=== PATIENT | female | born 1980 | race Caucasian/White ===

== ENCOUNTER 2024-06-25 09:55 | Outpatient (OUT) | payer OTHER, SELFPAY ==
--- NOTE | 2024-06-25 10:05 | MM_ITS ---
Patient Name: LARON ALMAGUER MR#: [id number] : 1980 Exam Date: 06/25/2024 Ordering Doctor: VERNA Alonzo CNP RADIOLOGY REPORT PROCEDURE: MM TOMOSYNTHESIS SCREENING BI COMPARISON: None. INDICATIONS: Screening Calculator Name NCI Breast Cancer Risk Assessment Tool 5 Year Breast Cancer Risk 0.50% Lifetime Breast Cancer Risk 8.20% Personal Breast Cancer No Personal Ovarian Cancer No Treatments None Family Cancers Grandmother-maternal with breast cancer at age 40. LOCATION: [facility] BREAST COMPOSITION: There are scattered areas of fibroglandular density. FINDINGS: DIAGNOSTIC CATEGORY 1--NEGATIVE. LEFT BREAST: No significant suspicious finding. RIGHT BREAST: No significant suspicious finding. RECOMMENDATIONS: ROUTINE MAMMOGRAM AND CLINICAL EVALUATION IN 12 MONTHS. PLEASE NOTE: A NORMAL MAMMOGRAM DOES NOT EXCLUDE THE POSSIBILITY OF BREAST CANCER. A CLINICALLY SUSPICIOUS PALPABLE LUMP SHOULD BE BIOPSIED. Dictated by: Theodore Mcgraw DO on 06/28/2024 at 15:39 Approved by: Theodore Mcgraw DO on 06/28/2024 at 15:43
--- NOTE | 2024-06-25 10:06 | US_ITS ---
The [address] [address] Patient Name: LARON ALMAGUER MRN: [id number] date: 1980 Sex: F Assigned Patient Location: [place] Current Patient Location: [place] Accession/Order Number: [id number] Exam Date: 06/25/2024 11:45 Report Date: 06/25/2024 11:49 At the request of: MARIUM SMITH NP Procedure: US thyroid Thyroid Ultrasound HISTORY: Thyroid nodule follow-up assessment COMPARISON: 06/20/2021 The RIGHT lobe measures 4.1 x 1.6 x 1.0cm. LEFT lobe measures 4.6 x 1.4 x 1.3 cm. Isthmus has an AP dimension of 1.1cm. Left mid thyroid nodule is composition 2 echogenicity 1. Total score of 3. Nodule measures 6 x 4 x 5 mm. Nodule is solid and isoechoic. Wider than tall. Well-circumscribed margin. No microcalcifications identified. Symmetric blood flow of the thyroid gland identified. US/US thyroid IMPRESSION: Stable 6 mm left thyroid nodule. Impression dictated by: Saul Obando M.D.06/25/2024 11:49 AM Dictation Location: [place] [address] Electronically authenticated by: [id number] Y Date: 06/25/2024 11:49
[2024-06-25 10:59] LABS: Basophils Absolute Auto 0.1 10^3/uL (0.0-0.1); Basophils Percent Auto 0.6 % (0.2-2.0); Eosinophils Absolute Auto 0.2 10^3/uL (0.0-0.7); Eosinophils Percent Auto 1.9 % (0.9-7.0); Hematocrit 39.8 % (36.0-48.0); Hemoglobin 13.7 g/dL (12.0-16.0); Immature Granulocytes Abs Auto 0.02 10^3/uL (0.00-0.03); Immature Granulocytes Pct Auto 0.2 % (0.0-0.5); Lymphocytes Percent Auto 24.7 % (20.5-60.0); Mean Corpuscular HGB Conc 34.4 g/dL (29.9-35.2); Mean Corpuscular Hemoglobin 31.4 pg (26.7-34.0); Mean Corpuscular Volume 91.3 fL (81.0-99.0); Mean Platelet Volume 8.8 fL (9.5-13.5); Monocytes Absolute Auto 0.5 10^3/uL (0.3-0.8); Monocytes Percent Auto 5.6 % (1.7-12.0); Neutrophils Absolute Auto 5.5 10^3/uL (1.4-6.5); Platelet Count 329 10^3/uL (150-450); Red Blood Count 4.36 10^6/uL (4.20-5.40); White Blood Count 8.2 10^3/uL (4.0-11.0)
[2024-06-25 11:02] LABS: Bilirubin Urine NEGATIVE (NEGATIVE); Blood Urine SMALL (NEGATIVE); Clarity Urine CLEAR (CLEAR); Color Urine YELLOW (YELLOW); Glucose Urine UA NEGATIVE (NEGATIVE); Ketones Urine NEGATIVE (NEGATIVE); Leukocyte Esterase Urine NEGATIVE (NEGATIVE); Nitrite Urine NEGATIVE (NEGATIVE); Protein Urine NEGATIVE (NEG/TRACE); Specific Gravity Urine >=1.030 (1.005-1.025); Urobilinogen Urine 0.2 EU/dL (0.2-1.0)
[2024-06-25 11:07] LABS: Urine Microscopic Indicated YES
[2024-06-25 11:10] LABS: WBC Urine 0-2 #/HPF (NONE SEEN)
[2024-06-25 11:11] LABS: Bacteria Urine MODERATE #/HPF (NONE SEEN); Cast Seen? NONE SEEN #/LPF (NONE SEEN); Crystals Seen? None Seen #/HPF (None Seen); Mucus Urine LARGE (NONE SEEN); Squamous Epithelial Cell Urine FEW #/LPF (NONE/RARE); Transitional Epi Cells Urine RARE #/LPF (NONE SEEN); Urine Culture Indicated YES-FRMC
[2024-06-25 11:40] LABS: Alanine Aminotransferase 18 U/L (14-59); Albumin Globulin Ratio 1.3; Alkaline Phosphatase 73 U/L (46-116); Anion Gap 11.5; Aspartate Amino Transferase 18 U/L (15-37); BUN Creatinine Ratio 11.6; Bilirubin Total 0.4 mg/dL (0.2-1.0); Calcium 9.2 mg/dL (8.5-10.1); Carbon Dioxide 26.5 mmol/L (21.0-32.0); Chloride 104 mmol/L (98-107); Chol HDL Ratio 3.8; Cholesterol 196 mg/dL (<=200); Estimated GFR (African America >60 (>=60 mL/min/1.73m^2); Estimated GFR (Non-African Ame >60 (>=60 mL/min/1.73m^2); Globulin 3.2 g/dL; Glucose 90 mg/dL (74-106); HDL Cholesterol 52 mg/dL (40-60); LDL Cholesterol Calculated 132.4 mg/dL; Sodium 138 mmol/L (136-145); Thyroid Stimulating Hormone 1.328 uIU/mL (0.358-3.740); Total Protein 7.2 g/dL (6.4-8.2); Triglycerides 58 mg/dL (<=150); VLDL CHOLESTEROL 11.6 mg/dL
== END 2024-06-25 09:56 | disposition home or self-care (01) ==
PROVIDERS: PCP Nurse Practitioner; Visit Provider Nurse Practitioner
DX: Z12.31 Encounter for screening mammogram for malignant neoplasm of breast (principal); Z00.00 Encounter for general adult medical examination without abnormal findings; Z80.3 Family history of malignant neoplasm of breast; E04.1 Nontoxic single thyroid nodule
CPT/HCPCS: 36415; 76536; 77063; 77067; 80053; 80061; 81001; 84443; 85025; 87086